=== PATIENT | male | born 1965 | race Caucasian/White ===

== ENCOUNTER 2016-08-23 14:38 | Emergency (ER) | payer OTHER ==
[2016-08-24] MEDS ORDERED: DIOVAN HCT PO (11:45)
[2016-08-24] MEDS ORDERED: MOBIC15 MG PO (11:45)
[2016-08-24] MEDS ORDERED: PERCOCET 10/3251 TAB (11:46)
[2016-08-24] MEDS ORDERED: BACDS PO (11:47)
[2016-08-24] MEDS ORDERED: PROAIR HFA INH (11:48)
[2016-08-24] MEDS ORDERED: ADDER10 (12:11)
== END 2016-08-23 15:34 | disposition home or self-care (01) ==
LOC: ER 14:38
PROC: 2W3KX1Z Immobilization of Left Finger using Splint (ICD-10-PCS; principal; 2016-08-23)
DX: S62.631A Displaced fracture of distal phalanx of left index finger, initial encounter for closed fracture (principal); I10 Essential (primary) hypertension; Z88.1 Allergy status to other antibiotic agents; W45.8XXA Other foreign body or object entering through skin, initial encounter
CPT/HCPCS: 73130-LT; 96374; 99283; J0690